=== PATIENT | male | born 1985 | race Caucasian/White ===

== ENCOUNTER 2020-04-29 19:26 | Emergency (ER) | payer SELFPAY ==
[2020-04-29] MEDS ORDERED: HYDROCODONE/APAP 5/325 MG TAB ONE ×2 (19:59→20:56)
[2020-04-29] MEDS ORDERED: ONDANSETRON 4 MG (ODT) TAB ONE (20:00)
[2020-04-29] MEDS ORDERED: KETOROLAC 30 MG/ML INJ ONE (20:56)
[2020-04-29] MEDS ORDERED: NA CHLORIDE 0.9% 1,000 ML ONE (22:31)
[2020-04-29] MEDS ORDERED: FENTANYL CITR 100 MCG/2 ML ONE (22:31)
[2020-04-29] MEDS ORDERED: HYDROMORPHONE HCL 1 MG/ML INJ ONE (23:14)
[2020-04-29 23:22] LABS: Absolute Lymphocytes (CBC) 1.2 K/uL (0.7-4.9); Basophils % 0.6 % (0-1.3); Hematocrit 31.4 % (39.6-49.0); Lymphocytes % 32.7 % (15.3-44.8); MPV 8.2 fL (7.6-11.3); RBC Red Blood Cell Count 4.65 M/uL (4.33-5.43)
[2020-04-29 23:34] LABS: ALT/SGPT 21 U/L (12-78); AST/SGOT 13 U/L (15-37); Albumin 4.6 g/dL (3.4-5.0); Alkaline Phosphatase 52 U/L (45-117); BUN Blood Urea Nitrogen 10 mg/dL (7-18); Bicarbonate 28 mmol/L (21-32); Bilirubin Direct 0.1 mg/dL (0-0.2); Bilirubin Total 0.4 mg/dL (0.2-1.0); Glucose Level 84 mg/dL (74-106); Lipase 183 U/L (73-393); Potassium 4.3 mmol/L (3.5-5.1); Protein, Total 7.9 g/dL (6.4-8.2); Sodium Level 139 mmol/L (136-145)
[2020-04-30] MEDS ORDERED: HYDROMORPHONE HCL 1 MG/ML INJ ONE (01:00)
[2020-04-30 01:07] LABS: Urine Blood 3+ (NEG); Urine Glucose NEGATIVE (NEG); Urine Protein NEGATIVE (NEG); Urine Specific Gravity <1.005 (1.005-1.030)
[2020-04-30 01:23] LABS: Blood Morphology Comment NOTED (NOT SEEN); Hypochromasia 1+; Platelet Estimate ADEQ; White Blood Cell Scan OK (OK)
--- NOTE | 2020-04-30 01:39 | ER ---
Nurse's Notes [facility] [place] Name: Luis Forman Age: 34 yrs Sex: Male : 1985 Arrival Date: 04/29/2020 Time: 19:29 Bed 23 Private MD: Diagnosis: Unspecified renal colic;Hematuria, unspecified Presentation: 04/29 19:34 Chief complaint: Patient states: L flank pain started last night. Now pain L groin area ca1 radiating to the R testicular area. HX of kidney stones. Coronavirus screen: Client denies travel out of the [place] in the last 14 days. At this time, the client does not indicate any symptoms associated with coronavirus-19. Ebola Screen: Patient negative for fever greater than or equal to 101.5 degrees Fahrenheit, and additional compatible Ebola Virus Disease symptoms Patient denies exposure to infectious person. Patient denies travel to an Ebola-affected area in the 21 days before illness onset. No symptoms or risks identified at this time. Initial Sepsis Screen: Does the patient meet any 2 criteria? No. Patient's initial sepsis screen is negative. Does the patient have a suspected source of infection? No. Patient's initial sepsis screen is negative. Risk Assessment: Do you want to hurt yourself or someone else? Patient reports no desire to harm self or others. Onset of symptoms was April 29, 2020. 19:34 Method Of Arrival: Ambulatory ca1 19:34 Acuity: FLORINDA 2 ca1 Triage Assessment: 19:38 General: Appears uncomfortable, Behavior is calm, cooperative. Pain: Complains of pain ca1 in groin and left inguinal area Pain currently is 10 out of 10 on a pain scale. Pain began 4 hours ago. Is continuous, Noted to be grimacing, guarding, moaning, restless. Historical: - Allergies: 19:37 No Known Allergies; ca1 - Home Meds: 19:37 Remicade 100 mg intravenous solr every 6 wks [Active]; ca1 - PMHx: 19:37 Kidney stones; Crohn's; ca1 - PSHx: 19:37 Cholecystectomy; ca1 - Immunization history:: Flu vaccine is up to date. - Social history:: Smoking status: Patient denies any tobacco usage or history of. Screenin/16 00:24 Abuse screen: Denies threats or abuse. Denies injuries from another. Nutritional zb screening: No deficits noted. Tuberculosis screening: No symptoms or risk factors identified. Fall Risk None identified. Assessment: 04/29 22:20 General: Appears uncomfortable, Behavior is anxious. Pain: Complains of pain in pelvis zb and left inguinal area and groin Pain does not radiate. Pain radiates to left inguinal area Pain currently is 10 out of 10 on a pain scale. Quality of pain is described as throbbing. Neuro: Level of Consciousness is awake, alert, obeys commands, Oriented to person, place, time, situation, Calender Tender are equal bilaterally. Cardiovascular: Capillary refill < 3 seconds Patient's skin is warm and dry. Respiratory: Airway is patent Respiratory effort is even, unlabored, Respiratory pattern is regular, symmetrical. GI: No signs and/or symptoms were reported involving the gastrointestinal system. : Reports pain in left flank(s). EENT: No signs and/or symptoms were reported regarding the EENT system. Derm: Skin is normal. Musculoskeletal: Range of motion: intact in all extremities. 23:00 Reassessment: Patient appears in no apparent distress at this time. Patient and/or zb family updated on plan of care and expected duration. Pain level reassessed. patient continues to rock back and forth, appears to be in pain. rates pain 10/10. notified ECP. medication given. 04/30 00:00 Reassessment: Patient appears in no apparent distress at this time. Patient and/or zb family updated on plan of care and expected duration. Pain level reassessed. Patient continues to be in pain. notified ECP. medication given. patient taken to CT scan. 00:45 Reassessment: ecp at bedside discussing care with patient. patient states he continues zb to be in pain. pain 10/10, continues to rock back and forth. 01:34 Reassessment: Patient appears in no apparent distress at this time. pt resting quietly sg on stretcher at this time, awaiting new orders, awaiting dispo orders. 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 Vital Signs: 04/29 19:34 BP 155 / 94; Pulse 100; Resp 16 S; Temp 98.2(TE); Pulse Ox 99% on R/A; Weight 72.57 kg ca1 (R); Height 6 ft. 1 in. (185.42 cm) (R); Pain 10/10; 23:00 BP 157 / 119; Pulse 85; Resp 18; Pulse Ox 99% on R/A; zb 04/30 00:25 BP 158 / 113; Pulse 89; Resp 16; Pulse Ox 97% on R/A; zb 01:50 BP 152 / 77; Pulse 82; Resp 16; Pulse Ox 98% on R/A; sg 03 19:34 Body Mass Index 21.11 (72.57 kg, 185.42 cm) ca1 ED Course: 04/29 19:29 Patient arrived in ED. am4 19:36 Triage completed. ca1 19:37 Arm band placed on right wrist. ca1 19:40 Pedro Pablo Beltrán MD is Attending Physician. tw4 22:11 Maite Painting RN is Primary Nurse. zb 23:00 Inserted saline lock: 22 gauge in left upper arm, using aseptic technique. Blood zb collected. 04/30 00:24 Patient has correct armband on for positive identification. Bed in low position. Call zb light in reach. Side rails up X 1. Pulse ox on. NIBP on. Door closed. Noise minimized. 00:50 CT Stone Protocol In Process Unspecified. EDMS 01:10 Primary Nurse role handed off by Maite Painting RN sg 01:10 Chaitanya Blanchard RN is Primary Nurse. sg 01:41 Dexter Guthrie MD is Referral Physician. tw4 01:41 Michel Gee MD is Referral Physician. tw4 01:48 No provider procedures requiring assistance completed. sg Administered Medications: 04/29 12:12 Drug: fentaNYL (PF) 25 mcg {Note: rass +1.} Route: IVP; Site: left upper arm; zb 04/30 00:22 Follow up: Response: No adverse reaction; Pain is unchanged, physician notified zb 04/29 19:43 Drug: Zofran (Ondansetron) 4 mg Route: PO; ca1 04/30 00:20 Follow up: Response: No adverse reaction zb 04/29 19:44 Drug: [place] 5 mg-325 mg 1 tabs {Note: rass 1.} Route: PO; ca1 21:20 Follow up: Response: No adverse reaction; Pain is unchanged, physician notified zb 20:42 Drug: TORadol 60 mg Route: IM; Site: right gluteus; ca1 04/30 00:20 Follow up: Response: No adverse reaction; Pain is unchanged, physician notified zb 04/29 20:42 Drug: [place] 5 mg-325 mg 1 tabs {Note: rass 1.} Route: PO; ca1 21:00 Follow up: Response: No adverse reaction; Pain is unchanged, physician notified zb 22:11 Drug: fentaNYL (PF) 50 mcg {Note: rass +1.} Route: IVP; Site: left upper arm; zb 22:30 Follow up: Response: No adverse reaction; Pain is unchanged, physician notified zb 23:05 Drug: NS 0.9% 1000 ml Route: IV; Rate: 1 bolus; Site: left upper arm; zb 23:05 Drug: Dilaudid 1 mg Route: IVP; Site: left upper arm; zb 04/30 00:22 Follow up: Response: No adverse reaction; RASS: Restless (+1) zb 00:48 Drug: Dilaudid 1 mg {Note: rass +1.} Route: IVP; Site: left upper arm; zb 01:38 Not Given (Physician Discretion): Valium 1 mg IVP once tw4 01:41 Drug: morphine 2 mg Route: IVP; Site: left upper arm; sg 02:01 Follow up: Response: Adverse reaction, Physician notified; Pain is decreased sg 01:41 Drug: Zofran (Ondansetron) 4 mg Route: IVP; Site: left upper arm; sg 02:01 Follow up: Response: Adverse reaction, Physician notified sg 02:00 Drug: Benadryl 50 mg Route: IVP; Site: left upper arm; sg 02:16 Follow up: Response: No adverse reaction; Marked relief of symptoms sg Intake: 04/29 19:00 IV: 1000ml; Total: 1000ml. zb Outcome: 04/30 01:39 Discharge ordered by . tw4 01:50 Patient left the ED. sg 02:16 Patient left the ED. sg Signatures: Dispatcher [employer] Chaitanya Rios RN RN sg Pedro Pablo Beltrán MD MD tw4 Corazon Lovelace RN RN ca1 Maite Painting RN RN zb Zen[place] Man am4 Corrections: (The following items were deleted from the chart) 04/29 19:37 19:34 Acuity: FLORINDA 3 ca1 ca1 19:56 19:34 BP 155 / 94; Pulse 100bpm; Resp 16bpm; Spontaneous; Temp 98.2F Temporal; 72.57 kg ca1 Reported; Height 6 ft. 1 in. Reported; BMI: 21.1; Pain 11/24; ca1 04/30 00:19 04/29 12:12 fentaNYL (PF) 25 mcg IVP in left upper arm zb zb 04/30 00:22 04/29 22:11 fentaNYL (PF) 50 mcg IVP in left upper arm zb zb 04/30 00:49 00:48 Dilaudid 1 mg IVP in left upper arm zb zb
--- NOTE | 2020-04-30 01:40 | EDPHYS ---
Physician Documentation [facility] Name: Luis Forman Age: 34 yrs Sex: Male : 1985 Arrival Date: 04/29/2020 Time: 19:29 Bed 23 Private MD: ED Physician Pedro Pablo Beltrán HPI: 04/30 01:01 This 34 yrs old Male presents to ER via Ambulatory with complaints of Flank tw4 Pain. 01:01 The patient complains of pain in the left mid back. The pain radiates to the left lower tw4 quadrant. Onset: The symptoms/episode began/occurred today. Modifying factors: The symptoms are alleviated by nothing. the symptoms are aggravated by nothing. Severity of pain: At its worst the pain was moderate in the emergency department the pain is unchanged. The patient has not experienced similar symptoms in the past. Historical: - Allergies: 04/29 19:37 No Known Allergies; ca1 - Home Meds: 19:37 Remicade 100 mg intravenous solr every 6 wks [Active]; ca1 - PMHx: 19:37 Kidney stones; Crohn's; ca1 - PSHx: 19:37 Cholecystectomy; ca1 - Immunization history:: Flu vaccine is up to date. - Social history:: Smoking status: Patient denies any tobacco usage or history of. ROS: 04/30 01:01 Constitutional: Negative for fever, chills, and weight loss, Eyes: Negative for injury, tw4 pain, redness, and discharge, Cardiovascular: Negative for chest pain, palpitations, and edema, Respiratory: Negative for shortness of breath, cough, wheezing, and pleuritic chest pain, Abdomen/GI: Negative for abdominal pain, nausea, vomiting, diarrhea, and constipation, MS/Extremity: Negative for injury and deformity, Skin: Negative for injury, rash, and discoloration, Neuro: Negative for headache, weakness, numbness, tingling, and seizure. Back: Positive for flank pain, on the left. Exam: 01:01 Constitutional: This is a well developed, well nourished patient who is awake, alert, tw4 and in no acute distress. Head/Face: Normocephalic, atraumatic. Chest/axilla: Normal chest wall appearance and motion. Nontender with no deformity. No lesions are appreciated. Cardiovascular: Regular rate and rhythm with a normal S1 and S2. No gallops, murmurs, or rubs. Normal PMI, no JVD. No pulse deficits. Respiratory: Lungs have equal breath sounds bilaterally, clear to auscultation and percussion. No rales, rhonchi or wheezes noted. No increased work of breathing, no retractions or nasal flaring. Abdomen/GI: Soft, non-tender, with normal bowel sounds. No distension or tympany. No guarding or rebound. No evidence of tenderness throughout. 01:01 MS/ Extremity: Pulses equal, no cyanosis. Neurovascular intact. Full, normal range of motion. Neuro: Awake and alert, GCS 15, oriented to person, place, time, and situation. Cranial nerves II-XII grossly intact. Motor strength 5/5 in all extremities. Sensory grossly intact. Cerebellar exam normal. Normal gait. 01:01 Back: pain, is absent, ROM is normal, CVA tenderness, is noted on the left. Vital Signs: 04/29 19:34 BP 155 / 94; Pulse 100; Resp 16 S; Temp 98.2(TE); Pulse Ox 99% on R/A; Weight 72.57 kg ca1 (R); Height 6 ft. 1 in. (185.42 cm) (R); Pain 10/10; 23:00 BP 157 / 119; Pulse 85; Resp 18; Pulse Ox 99% on R/A; zb 04/30 00:25 BP 158 / 113; Pulse 89; Resp 16; Pulse Ox 97% on R/A; zb 01:50 BP 152 / 77; Pulse 82; Resp 16; Pulse Ox 98% on R/A; sg 04/29 19:34 Body Mass Index 21.11 (72.57 kg, 185.42 cm) ca1 MDM: 04/29 22:51 Patient medically screened. tw4 04/30 06:18 Differential diagnosis: nephrolithiasis, pyelonephritis. Data reviewed: vital signs, tw4 nurses notes. Data interpreted: Pulse oximetry: Interpretation: normal. Counseling: I had a detailed discussion with the patient and/or guardian regarding: the historical points, exam findings, and any diagnostic results supporting the discharge/admit diagnosis. Medical screen evaluation completed. EMTALA emergency medical condition absent. Medication response: Toradol did not change the patient's pain. Response to treatment: the patient's symptoms have markedly improved after treatment, and as a result, I will discharge patient. Special discussion: I discussed with the patient/guardian in detail that at this point there is no indication for admission to the hospital. It is understood, however, that if the symptoms persist or worsen the patient needs to return immediately for re-evaluation. 04/29 19:41 Order name: Basic Metabolic Panel; Complete Time: 01:35 [facility] 04/30 01:35 Interpretation: Within normal limits. [facility] 04/29 19:41 Order name: CBC with Diff; Complete Time: 01:34 tw 04/30 01:34 Interpretation: Normal except: WBC 3.70; HGB 9.3; HCT 31.4; MCV 67.4; MCH 20.0; MCHC tw4 29.6; RDW 18.5. 04/29 19:41 Order name: Hepatic Function; Complete Time: 01:34 [facility] 04/30 01:34 Interpretation: Normal except: AST 13. [facility] 04/29 19:41 Order name: Lipase; Complete Time: 01:35 [facility] 04/30 01:35 Interpretation: Within normal limits: LIP 183. [facility] 04/29 23:32 Order name: Urine Microscopic Only [facility] 04/29 23:39 Order name: Urine Dipstick--Ancillary (enter results); Complete Time: 01:34 3 04/30 01:35 Interpretation: Normal except: UBLD 3+. [facility] 04/29 19:41 Order name: CT Stone Protocol [facility] 04/29 23:47 Order name: CBC Smear Scan; Complete Time: 01:35 EDMS 04/30 01:35 Interpretation: Within normal limits. [facility] 04/29 19:41 Order name: IV Saline Lock; Complete Time: 23:05 [facility] 04/29 19:41 Order name: Labs collected and sent; Complete Time: 23:05 [facility] 04/29 19:41 Order name: Urine Dipstick-Ancillary (obtain specimen); Complete Time: 00:30 tw Administered Medications: 04/29 12:12 Drug: fentaNYL (PF) 25 mcg {Note: rass +1.} Route: IVP; Site: left upper arm; 04/30 00:22 Follow up: Response: No adverse reaction; Pain is unchanged, physician notified 04/29 19:43 Drug: Zofran (Ondansetron) 4 mg Route: PO; ca1 04/30 00:20 Follow up: Response: No adverse reaction zb 04/29 19:44 Drug: [place] 5 mg-325 mg 1 tabs {Note: rass 1.} Route: PO; ca1 21:20 Follow up: Response: No adverse reaction; Pain is unchanged, physician notified zb 20:42 Drug: TORadol 60 mg Route: IM; Site: right gluteus; ca1 04/30 00:20 Follow up: Response: No adverse reaction; Pain is unchanged, physician notified zb 04/29 20:42 Drug: [place] 5 mg-325 mg 1 tabs {Note: rass 1.} Route: PO; ca1 21:00 Follow up: Response: No adverse reaction; Pain is unchanged, physician notified zb 22:11 Drug: fentaNYL (PF) 50 mcg {Note: rass +1.} Route: IVP; Site: left upper arm; zb 22:30 Follow up: Response: No adverse reaction; Pain is unchanged, physician notified zb 23:05 Drug: NS 0.9% 1000 ml Route: IV; Rate: 1 bolus; Site: left upper arm; zb 23:05 Drug: Dilaudid 1 mg Route: IVP; Site: left upper arm; zb 04/30 00:22 Follow up: Response: No adverse reaction; RASS: Restless (+1) zb 00:48 Drug: Dilaudid 1 mg {Note: rass +1.} Route: IVP; Site: left upper arm; zb 01:38 Not Given (Physician Discretion): Valium 1 mg IVP once tw4 01:41 Drug: morphine 2 mg Route: IVP; Site: left upper arm; sg 02:01 Follow up: Response: Adverse reaction, Physician notified; Pain is decreased sg 01:41 Drug: Zofran (Ondansetron) 4 mg Route: IVP; Site: left upper arm; sg 02:01 Follow up: Response: Adverse reaction, Physician notified sg 02:00 Drug: Benadryl 50 mg Route: IVP; Site: left upper arm; sg 02:16 Follow up: Response: No adverse reaction; Marked relief of symptoms sg Disposition: 04/30/20 01:39 Discharged to Home. Impression: Unspecified renal colic, Hematuria, unspecified. - Condition is Stable. - Discharge Instructions: Hematuria, Adult, Kidney Stones, Renal Colic. - Prescriptions for ketorolac 10 mg Oral tablet - take 1 tablet by ORAL route every 4 hours not to exceed 40 mg in 24hrs; 14 tablet. Tramadol 50 mg Oral Tablet - take 1 tablet by ORAL route every 8 hours as needed; 12 tablet. - Medication Reconciliation Form, Thank You Letter, Antibiotic Education, Prescription Opioid Use form. - Follow up: Private Physician; When: Upon discharge from the Emergency Department; Reason: Recheck today's complaints, Continuance of care, Re-evaluation by your physician. Follow up: Dexter Guthrie MD; When: Upon discharge from the Emergency Department; Reason: Recheck today's complaints, Continuance of care, Re-evaluation by your physician. Follow up: Michel Gee MD; When: Upon discharge from the Emergency Department; Reason: Recheck today's complaints, Continuance of care, Re-evaluation by your physician. - Problem is new. - Symptoms have improved. Signatures: Dispatcher [employer] EDMS Chaitanya Blanchard RN RN sg Pedro Pablo Beltrán MD MD tw4 Corazon Lovelace RN RN ca1 Brown, Zipporah, RN RN zb Corrections: (The following items were deleted from the chart) 01:41 01:39 04/30/2020 01:39 Discharged to Home. Impression: Unspecified renal colic; tw4 Hematuria, unspecified. Condition is Stable. Forms are Medication Reconciliation Form, Thank You Letter, Antibiotic Education, Prescription Opioid Use. Follow up: Private Physician; When: Upon discharge from the Emergency Department; Reason: Recheck today's complaints, Continuance of care, Re-evaluation by your physician. Problem is new. Symptoms have improved. tw4 01:50 01:41 04/30/2020 01:39 Discharged to Home. Impression: Unspecified renal colic; sg Hematuria, unspecified. Condition is Stable. Discharge Instructions: Hematuria, Adult, Kidney Stones, Renal Colic. Prescriptions for ketorolac 10 mg Oral tablet - take 1 tablet by ORAL route every 4 hours not to exceed 40 mg in 24hrs; 14 tablet, Tramadol 50 mg Oral Tablet - take 1 tablet by ORAL route every 8 hours as needed; 12 tablet. and Forms are Medication Reconciliation Form, Thank You Letter, Antibiotic Education, Prescription Opioid Use. Follow up: Private Physician; When: Upon discharge from the Emergency Department; Reason: Recheck today's complaints, Continuance of care, Re-evaluation by your physician. Follow up: Dexter Guthrie; When: Upon discharge from the Emergency Department; Reason: Recheck today's complaints, Continuance of care, Re-evaluation by your physician. Follow up: Michel Gee; When: Upon discharge from the Emergency Department; Reason: Recheck today's complaints, Continuance of care, Re-evaluation by your physician. Problem is new. Symptoms have improved. tw4 02:16 01:50 04/30/2020 01:39 Discharged to Home. Impression: Unspecified renal colic; sg Hematuria, unspecified. Condition is Stable. Discharge Instructions: Hematuria, Adult, Kidney Stones, Renal Colic. Prescriptions for ketorolac 10 mg Oral tablet - take 1 tablet by ORAL route every 4 hours not to exceed 40 mg in 24hrs; 14 tablet, Tramadol 50 mg Oral Tablet - take 1 tablet by ORAL route every 8 hours as needed; 12 tablet. and Forms are Medication Reconciliation Form, Thank You Letter, Antibiotic Education, Prescription Opioid Use. Follow up: Private Physician; When: Upon discharge from the Emergency Department; Reason: Recheck today's complaints, Continuance of care, Re-evaluation by your physician. Follow up: Dexter Guthrie; When: Upon discharge from the Emergency Department; Reason: Recheck today's complaints, Continuance of care, Re-evaluation by your physician. Follow up: Michel Gee; When: Upon discharge from the Emergency Department; Reason: Recheck today's complaints, Continuance of care, Re-evaluation by your physician. Problem is new. Symptoms have improved. sg
[2020-04-30 01:58] LABS: Urine Bacteria <20 /HPF (NONE SEEN); Urine RBC 20-50 /HPF (NONE SEEN)
[2020-04-30] MEDS ORDERED: ONDANSETRON 4 MG/2 ML VIAL ONE (02:00)
[2020-04-30] MEDS ORDERED: MORPHINE 4 MG/ML SYR ONE (02:00)
[2020-04-30] MEDS ORDERED: FAMOTIDINE 20 MG/2 ML VIAL IV ONE (02:13)
[2020-04-30] MEDS ORDERED: METHYLPREDNISOLONE 125 MG INJ ONE (02:13)
[2020-04-30] MEDS ORDERED: DIPHENHYDRAMINE 50 MG/ML VIAL ONE (02:13)
[2020-04-30 04:34] VITALS: TEMP 98.2
[2020-04-30 05:52] VITALS: BP 152/77; O2SAT 98
--- NOTE | 2020-04-30 10:50 | RAD REPORT ---
EXAM DESCRIPTION: CT - Stone Protocol - 04/30/2020 6:21 am CLINICAL HISTORY: 34 years, Male, FLANK PAIN COMPARISON: None. TECHNIQUE: Multiple transaxial tomograms of the abdomen and pelvis were performed from the lung base s to the symphysis pubis 3 mm slice thickness at 3 mm interval reconstruction, without administration of IV and oral contrast. Multiplanar reformats in the sagittal and coronal plane were generated and reviewed. An individualized dose optimization technique, Automated Exposure Control, was utilized for the perfo rmed procedure. FINDINGS: The lack of IV and oral contrast limits evaluation of solid organs, subtle lesions cannot be excluded. Motion artifact limits the evaluation. The lung bases demonstrate to be grossly clear. Grossly the unopacified liver, pancreas, spleen and adrenal glands demonstrate to be within normal li mits, no significant focal lesions were identified. There is status post cholecystectomy. The kidneys demonstrate grossly unremarkable, no gross nephrolithiasis and/or hydronephrosis were maximus ntified. Grossly the unopacified stomach, small bowel and large bowel demonstrate to be within normal limits. There is no definitive bowel dilatation. The urinary bladder demonstrate to be within normal limits. The prostate gland demonstrate to be riky sly within normal limits. The aorta demonstrate to be within normal limits. There is no retroperito arianna lymphadenopathy. There is no evidence for significant evidence for ascites. The rest of the so ft tissue demonstrate to be grossly unremarkable. IMPRESSION: COMPROMISE STUDY DUE TO MOTION ARTIFACT. NO SIGNIFICANT HYDRONEPHROSIS AND/OR NEPHROLITH IASIS. Electronically signed by: Raudel Rothman MD 04/30/2020 12:58 AM CDT Due to temporary technical issues with the PACS/Fluency reporting system, reports are being signed by the in house radiologist without review as a courtesy to ensure prompt reporting. The interpreting r adiologist is fully responsible for the content of the report.
== END 2020-04-30 02:16 | disposition home or self-care (01) ==
LOC: ER 19:26
DX: N23 Unspecified renal colic (principal); R31.9 Hematuria, unspecified; Z87.442 Personal history of urinary calculi
CPT/HCPCS: 36415; 74176; 76377; 80048; 80076; 81003; 81015; 83690; 85025; 96372; 96374; 96375; 99284; J1170; J1200; J2405; J2930; J3010; J7030

== ENCOUNTER 2020-05-01 00:41 | Emergency (ER) | payer SELFPAY ==
[2020-05-01] MEDS ORDERED: FENTANYL CITR 100 MCG/2 ML ONE (02:26)
[2020-05-01] MEDS ORDERED: ONDANSETRON 4 MG/2 ML VIAL ONE (02:26)
[2020-05-01] MEDS ORDERED: KETOROLAC 30 MG/ML INJ ONE (02:26)
[2020-05-01] MEDS ORDERED: NA CHLORIDE 0.9% 1,000 ML ONE ×2 (02:26→04:13)
[2020-05-01 02:33] LABS: Absolute Lymphocytes (CBC) 1.5 K/uL (0.7-4.9); Basophils % 0.6 % (0-1.3); Hematocrit 29.6 % (39.6-49.0); Lymphocytes % 47.2 % (15.3-44.8); MPV 8.2 fL (7.6-11.3); RBC Red Blood Cell Count 4.44 M/uL (4.33-5.43)
[2020-05-01 03:00] LABS: ALT/SGPT 19 U/L (12-78); AST/SGOT 8 U/L (15-37); Albumin 4.3 g/dL (3.4-5.0); Alkaline Phosphatase 50 U/L (45-117); BUN Blood Urea Nitrogen 14 mg/dL (7-18); Bicarbonate 28 mmol/L (21-32); Bilirubin Direct < 0.1 mg/dL (0-0.2); Bilirubin Total 0.2 mg/dL (0.2-1.0); Glucose Level 99 mg/dL (74-106); Lipase 116 U/L (73-393); Potassium 4.1 mmol/L (3.5-5.1); Protein, Total 7.5 g/dL (6.4-8.2); Sodium Level 141 mmol/L (136-145)
[2020-05-01] MEDS ORDERED: HYDROMORPHONE HCL 1 MG/ML INJ ONE ×3 (03:05→06:09)
[2020-05-01 03:46] LABS: Blood Morphology Comment NOTED (NOT SEEN); Hypochromasia 2+; Platelet Estimate ADEQ; White Blood Cell Scan OK (OK)
[2020-05-01] MEDS ORDERED: FAMOTIDINE 20 MG/2 ML VIAL IV ONE (04:30)
[2020-05-01] MEDS ORDERED: DIPHENHYDRAMINE 50 MG/ML VIAL ONE (04:30)
[2020-05-01] MEDS ORDERED: METHYLPREDNISOLONE 125 MG INJ ONE (04:30)
--- NOTE | 2020-05-01 05:36 | EDPHYS ---
Physician Documentation [facility] Name: Luis Forman Age: 34 yrs Sex: Male : 1985 Arrival Date: 05/01/2020 Time: 00:44 Bed 3 Private MD: ED Physician Minor Camejo HPI: 05/01 01:42 This 34 yrs old Male presents to ER via Unassigned with complaints of Flank harlan Pain. 01:42 The patient complains of pain in the left low back and left mid back. The pain radiates harlan to the left low back and left mid back. Onset: The symptoms/episode began/occurred 2 day(s) ago. Modifying factors: The symptoms are alleviated by nothing. the symptoms are aggravated by nothing. Associated signs and symptoms: The patient has no apparent associated signs or symptoms. Severity of pain: At its worst the pain was mild in the emergency department the pain is unchanged. The patient has not experienced similar symptoms in the past. Historical: - Allergies: 00:46 Morphine; sg - PMHx: 00:46 Crohn's; Kidney stones; sg - PSHx: 00:46 Cholecystectomy; sg - Immunization history:: Adult Immunizations unknown. - Family history:: not pertinent. - Social history:: Smoking status: unknown. ROS: 01:42 Constitutional: Negative for fever, chills, and weight loss, Eyes: Negative for injury, harlan pain, redness, and discharge, ENT: Negative for injury, pain, and discharge, Neck: Negative for injury, pain, and swelling, Cardiovascular: Negative for chest pain, palpitations, and edema, Respiratory: Negative for shortness of breath, cough, wheezing, and pleuritic chest pain, Abdomen/GI: Negative for abdominal pain, nausea, vomiting, diarrhea, and constipation, : Negative for injury, bleeding, discharge, and swelling, MS/Extremity: Negative for injury and deformity, Skin: Negative for injury, rash, and discoloration, Neuro: Negative for headache, weakness, numbness, tingling, and seizure. 01:42 Back: Positive for pain at rest, flank pain, on the left, radiated pain. Exam: 01:42 Constitutional: This is a well developed, well nourished patient who is awake, alert, harlan and in no acute distress. Head/Face: Normocephalic, atraumatic. Eyes: Pupils equal round and reactive to light, extra-ocular motions intact. Lids and lashes normal. Conjunctiva and sclera are non-icteric and not injected. Cornea within normal limits. Periorbital areas with no swelling, redness, or edema. ENT: Nares patent. No nasal discharge, no septal abnormalities noted. Tympanic membranes are normal and external auditory canals are clear. Oropharynx with no redness, swelling, or masses, exudates, or evidence of obstruction, uvula midline. Mucous membranes moist. Neck: Trachea midline, no thyromegaly or masses palpated, and no cervical lymphadenopathy. Supple, full range of motion without nuchal rigidity, or vertebral point tenderness. No Meningismus. Chest/axilla: Normal chest wall appearance and motion. Nontender with no deformity. No lesions are appreciated. Cardiovascular: Regular rate and rhythm with a normal S1 and S2. No gallops, murmurs, or rubs. Normal PMI, no JVD. No pulse deficits. Respiratory: Lungs have equal breath sounds bilaterally, clear to auscultation and percussion. No rales, rhonchi or wheezes noted. No increased work of breathing, no retractions or nasal flaring. Abdomen/GI: Soft, non-tender, with normal bowel sounds. No distension or tympany. No guarding or rebound. No evidence of tenderness throughout. Back: No spinal tenderness. No costovertebral tenderness. Full range of motion. Male : Normal genitalia with no discharge or lesions. Skin: Warm, dry with normal turgor. Normal color with no rashes, no lesions, and no evidence of cellulitis. MS/ Extremity: Pulses equal, no cyanosis. Neurovascular intact. Full, normal range of motion. Neuro: Awake and alert, GCS 15, oriented to person, place, time, and situation. Cranial nerves II-XII grossly intact. Motor strength 5/5 in all extremities. Sensory grossly intact. Cerebellar exam normal. Normal gait. Psych: Awake, alert, with orientation to person, place and time. Behavior, mood, and affect are within normal limits. Vital Signs: 00:46 BP 162 / 100; Pulse 88; Resp 18; Pulse Ox 100% on R/A; sg 02:54 BP 152 / 105; Pulse 76; Resp 18; Pulse Ox 99% on R/A; ea 05:50 BP 148 / 98; Pulse 72; Resp 16; Pulse Ox 99% on R/A; Pain 9/10; em MDM: 01:35 Patient medically screened. [facility] 01:47 Differential diagnosis: nephrolithiasis, pyelonephritis, UTI, testicular torsion. Data [facility] reviewed: vital signs, nurses notes, lab test result(s), radiologic studies, CT scan. Data interpreted: environmental studies program director: rate is 88 beats/min, rhythm is regular, Pulse oximetry: on room air is 10 %. Test interpretation: by ED physician or midlevel provider:. Counseling: I had a detailed discussion with the patient and/or guardian regarding: the historical points, exam findings, and any diagnostic results supporting the discharge/admit diagnosis, lab results, radiology results, the need for outpatient follow up. 05/01 01:34 Order name: Basic Metabolic Panel; Complete Time: 03:49 [facility] 05/01 01:34 Order name: CBC with Diff; Complete Time: 03:49 [facility] 05/01 01:34 Order name: Hepatic Function; Complete Time: 03:49 [facility] 05/01 01:34 Order name: Lipase; Complete Time: 03:49 [facility] 05/01 02:41 Order name: CBC Smear Scan; Complete Time: 03:49 [facility] 05/01 05:51 Order name: Urine Dipstick--Ancillary (enter results) tt3 05/01 03:49 Order name: CT Abd/Pelvis - IV Contrast Only [facility] 05/01 01:34 Order name: IV Saline Lock; Complete Time: 02:24 [facility] 05/01 01:34 Order name: Labs collected and sent; Complete Time: 02:24 [facility] 05/01 01:34 Order name: Urine Dipstick-Ancillary (obtain specimen); Complete Time: 05:48 [facility] Administered Medications: 02:22 Drug: Zofran (Ondansetron) 4 mg Route: IVP; Site: right upper arm; ea 02:23 Follow up: Response: No adverse reaction ea 02:22 Drug: TORadol 30 mg Route: IVP; Site: right upper arm; ea 02:53 Follow up: Response: No adverse reaction ea 02:23 Drug: NS 0.9% 1000 ml Route: IV; Rate: 1 bolus; Site: right upper arm; ea 02:23 Drug: fentaNYL (PF) 50 mcg Route: IVP; Site: right upper arm; ea 02:53 Follow up: Response: No adverse reaction ea 02:51 Drug: Dilaudid 1 mg Route: IVP; Site: right upper arm; ea 03:30 Follow up: Response: No adverse reaction ea 04:02 Drug: Dilaudid 1 mg Route: IVP; Site: right upper arm; ea 05:00 Follow up: Response: No adverse reaction ea 05:00 Follow up: Response: No adverse reaction ea 04:03 Drug: NS 0.9% 1000 ml Route: IV; Rate: 1 bolus; Site: right upper arm; ea 06:06 Follow up: IV Status: Completed infusion; IV Intake: 1000ml em 04:18 Drug: SOLU-Medrol 125 mg Route: IVP; Site: right upper arm; ea 06:08 Follow up: Response: No adverse reaction em 04:19 Drug: Benadryl 50 mg Route: IVP; Site: right upper arm; ea 05:00 Follow up: Response: No adverse reaction ea 04:19 Drug: Pepcid 40 mg Route: IVP; Site: right upper arm; ea 06:09 Follow up: Response: No adverse reaction em 05:52 Drug: Rocephin - (cefTRIAXone) 1 grams Route: IVPB; Infused Over: 30 mins; Site: right em upper arm; 06:08 Follow up: Response: No adverse reaction; IV Status: Completed infusion; IV Intake: 10mlem 05:58 Drug: Dilaudid 1 mg Route: IVP; Site: right upper arm; em 06:08 Follow up: Response: Medication administered at discharge. em Disposition: 05/01/20 05:35 Discharged to Home. Impression: Urinary tract infection, site not specified, Abdominal tenderness, Cystitis, unspecified, Cystitis, unspecified with hematuria. - Condition is Stable. - Discharge Instructions: Abdominal Pain, Adult, Dysuria, Urinary Tract Infection, Adult, Urinary Tract Infection, Adult, [id number], Abdominal Pain, Adult, [id number]. - Prescriptions for Bentyl 20 mg Oral Tablet - take 1 tablet by ORAL route every 6 hours As needed; 20 tablet. Tylenol- Codeine #3 300-30 mg Oral Tablet - take 2 tablets by ORAL route every 4-6 hours As needed; 24 tablet. Flomax 0.4 mg Oral Capsule, Sust. Release 24 hr - take 1 capsule by ORAL route once daily 1/2 hour following the same meal each day; 14 capsule. Cipro 500 mg Oral Tablet - take 1 tablet by ORAL route every 12 hours for 7 days; 14 tablet. - Medication Reconciliation Form, Thank You Letter, Antibiotic Education, Prescription Opioid Use form. - Follow up: Private Physician; When: 2 - 3 days; Reason: Recheck today's complaints, Continuance of care, Re-evaluation by your physician. Follow up: Michel Gee MD; When: 2 - 3 days; Reason: Recheck today's complaints, Continuance of care, Re-evaluation by your physician. - Problem is new. - Symptoms have improved. Signatures: Dispatcher [employer] EDChaitanya Osborne RN RN sg Anderson, Corey, MD MD cha Munoz, Edgar RN Ursula Rahman RN RN ea Corrections: (The following items were deleted from the chart) 05:35 05:35 05/01/2020 05:35 Discharged to Home. Impression: Urinary tract infection, site harlan not specified; Abdominal tenderness. Condition is Stable. Forms are Medication Reconciliation Form, Thank You Letter, Antibiotic Education, Prescription Opioid Use. Follow up: Private Physician; When: 2 - 3 days; Reason: Recheck today's complaints, Continuance of care, Re-evaluation by your physician. Follow up: Michel Gee; When: 2 - 3 days; Reason: Recheck today's complaints, Continuance of care, Re-evaluation by your physician. Problem is new. Symptoms have improved. [facility] 06:12 05:35 05/01/2020 05:35 Discharged to Home. Impression: Urinary tract infection, site em not specified; Abdominal tenderness; Cystitis, unspecified; Cystitis, unspecified with hematuria. Condition is Stable. Forms are Medication Reconciliation Form, Thank You Letter, Antibiotic Education, Prescription Opioid Use. Follow up: Private Physician; When: 2 - 3 days; Reason: Recheck today's complaints, Continuance of care, Re-evaluation by your physician. Follow up: Michel Gee; When: 2 - 3 days; Reason: Recheck today's complaints, Continuance of care, Re-evaluation by your physician. Problem is new. Symptoms have improved. harlan
--- NOTE | 2020-05-01 05:36 | ER ---
Nurse's Notes [facility] Name: Luis Forman Age: 34 yrs Sex: Male : 1985 Arrival Date: 05/01/2020 Time: 00:44 Bed 3 Private MD: Diagnosis: Urinary tract infection, site not specified;Abdominal tenderness;Cystitis, unspecified;Cystitis, unspecified with hematuria Presentation: 05/01 00:46 Chief complaint: Patient states: Returning flank pain and nausea seen here last night sg and discharged to home to follow up, reports symptoms returning at this time. 00:46 Acuity: FLORINDA 3 sg 01:45 Coronavirus screen: At this time, the client does not indicate any symptoms associated ea with coronavirus-19. Ebola Screen: No symptoms or risks identified at this time. Initial Sepsis Screen: Does the patient meet any 2 criteria? No. Patient's initial sepsis screen is negative. Does the patient have a suspected source of infection? No. Patient's initial sepsis screen is negative. Risk Assessment: Do you want to hurt yourself or someone else? Patient reports no desire to harm self or others. Onset of symptoms was May 01, 2020. 01:45 Method Of Arrival: Ambulatory ea Historical: - Allergies: 00:46 Morphine; sg - PMHx: 00:46 Crohn's; Kidney stones; sg - PSHx: 00:46 Cholecystectomy; sg - Immunization history:: Adult Immunizations unknown. - Family history:: not pertinent. - Social history:: Smoking status: unknown. Screenin:45 Abuse screen: Denies threats or abuse. Nutritional screening: No deficits noted. ea Tuberculosis screening: No symptoms or risk factors identified. Fall Risk None identified. Assessment: 02:24 General: Appears uncomfortable, Behavior is appropriate for age. Pain: Complains of ea pain in left mid back and left low back. Neuro: Level of Consciousness is awake, alert, obeys commands, Oriented to person, place, time. Respiratory: Airway is patent Respiratory effort is even, unlabored, Respiratory pattern is regular, symmetrical. Derm: Skin is pink, warm \T\ dry. 03:50 Reassessment: Patient and/or family updated on plan of care and expected duration. Pain ea level reassessed. Patient is alert, oriented x 3, equal unlabored respirations, skin warm/dry/pink. Pt going to CT. 05:50 Reassessment: request something for pain, Dr. Camejo notified, received VO to repeat em 1 mg Dilaudid IVP x 1. 06:13 Reassessment: Patient and/or family updated on plan of care and expected duration. Pain ea level reassessed. Patient is alert, oriented x 3, equal unlabored respirations, skin warm/dry/pink. Discharge instructions given to patient verbalized the understanding of instruction. Pt left ED ambulatory tolerating well. Vital Signs: 00:46 BP 162 / 100; Pulse 88; Resp 18; Pulse Ox 100% on R/A; sg 02:54 BP 152 / 105; Pulse 76; Resp 18; Pulse Ox 99% on R/A; ea 05:50 BP 148 / 98; Pulse 72; Resp 16; Pulse Ox 99% on R/A; Pain 9/10; em ED Course: 00:44 Patient arrived in ED. am4 00:47 Triage completed. sg 00:47 Arm band placed on. sg 01:30 Minor Camejo MD is Attending Physician. harlan 01:45 Ursula Boucher, ARNOL is Primary Nurse. ea 01:46 Patient has correct armband on for positive identification. Bed in low position. Call ea light in reach. Side rails up X 1. Pulse ox on. NIBP on. 02:05 Inserted saline lock: 22 gauge in right upper arm, using aseptic technique. ,using ea aseptic technique. per Pete RN Blood collected. 04:39 CT Abd/Pelvis - IV Contrast Only In Process Unspecified. EDMS 05:34 Michel Gee MD is Referral Physician. harlan 05:48 Urine collected: clean catch specimen, clear. em 06:05 No provider procedures requiring assistance completed. IV discontinued, intact, em bleeding controlled, No redness/swelling at site. Pressure dressing applied. Administered Medications: 02:22 Drug: Zofran (Ondansetron) 4 mg Route: IVP; Site: right upper arm; ea 02:23 Follow up: Response: No adverse reaction ea 02:22 Drug: TORadol 30 mg Route: IVP; Site: right upper arm; ea 02:53 Follow up: Response: No adverse reaction ea 02:23 Drug: NS 0.9% 1000 ml Route: IV; Rate: 1 bolus; Site: right upper arm; ea 02:23 Drug: fentaNYL (PF) 50 mcg Route: IVP; Site: right upper arm; ea 02:53 Follow up: Response: No adverse reaction ea 02:51 Drug: Dilaudid 1 mg Route: IVP; Site: right upper arm; ea 03:30 Follow up: Response: No adverse reaction ea 04:02 Drug: Dilaudid 1 mg Route: IVP; Site: right upper arm; ea 05:00 Follow up: Response: No adverse reaction ea 05:00 Follow up: Response: No adverse reaction ea 04:03 Drug: NS 0.9% 1000 ml Route: IV; Rate: 1 bolus; Site: right upper arm; ea 06:06 Follow up: IV Status: Completed infusion; IV Intake: 1000ml em 04:18 Drug: SOLU-Medrol 125 mg Route: IVP; Site: right upper arm; ea 06:08 Follow up: Response: No adverse reaction em 04:19 Drug: Benadryl 50 mg Route: IVP; Site: right upper arm; ea 05:00 Follow up: Response: No adverse reaction ea 04:19 Drug: Pepcid 40 mg Route: IVP; Site: right upper arm; ea 06:09 Follow up: Response: No adverse reaction em 05:52 Drug: Rocephin - (cefTRIAXone) 1 grams Route: IVPB; Infused Over: 30 mins; Site: right em upper arm; 06:08 Follow up: Response: No adverse reaction; IV Status: Completed infusion; IV Intake: 10mlem 05:58 Drug: Dilaudid 1 mg Route: IVP; Site: right upper arm; em 06:08 Follow up: Response: Medication administered at discharge. em Intake: 06:06 IV: 1000ml; Total: 1000ml. em 06:08 IV: 10ml; Total: 1010ml. em Outcome: 05:35 Discharge ordered by . harlan 06:05 Discharged to home ambulatory, with family. em 06:05 Condition: stable 06:05 Discharge instructions given to patient, Instructed on discharge instructions, follow up and referral plans. medication usage, Demonstrated understanding of instructions, follow-up care, medications, Prescriptions given X 4. 06:12 Patient left the ED. em Signatures: Dispatcher [employer] EDChaitanya Osborne RN RN sg Anderson, Corey, MD MD cha Munoz, Edgar, RN RN Ursula Salazar, RN RN Zenobia Salter Quinn
[2020-05-01] MEDS ORDERED: CEFTRIAXONE/SWI 1gm 1 GM/10 ML SYR ONE (06:09)
[2020-05-01 06:18] VITALS: O2SAT 99
[2020-05-01 06:19] VITALS: BP 148/98
[2020-05-01 08:23] LABS: Urine Blood 3+ (NEG); Urine Glucose NEGATIVE (NEG); Urine Protein NEGATIVE (NEG); Urine Specific Gravity <1.005 (1.005-1.030)
--- NOTE | 2020-05-01 11:13 | RAD REPORT ---
EXAM DESCRIPTION: CT - Abdomen Pelvis W Contrast - 05/01/2020 6:58 am CLINICAL HISTORY: ABD PAIN COMPARISON: 04/30/2020 TECHNIQUE: CT of the abdomen and pelvis performed following IV administration of iodinated contras t. This exam was performed according to our departmental dose-optimization program, which includes au tomated exposure control, adjustment of the mA and/or kV according to patient size and/or use of iter ative reconstruction technique. FINDINGS: Lung Bases: The visualized lung bases are clear. Bones: No destructive bone lesions identified. Abdomen: Liver: The liver has normal size and density. No intrahepatic biliary dilatation. Gallbladder: Prior cholecystectomy. Spleen, Pancreas, and Adrenal Glands: The spleen, pancreas, and adrenal glands are unremarkable. Kidneys: No hydronephrosis or obstructing calculus. Vasculature: The aorta and IVC have normal caliber and position. The portal vein is patent. The pro ximal visceral and renal arteries are patent. Stomach: The stomach and duodenum have normal course. Other: No free intraperitoneal air. No free fluid or lymphadenopathy. Pelvis: Bladder: Mild wall thickening of the urinary bladder. Bowel: No dilated loops of large or small bowel. Moderate amount of stool. Appendix: Prior appendectomy. Pelvis: Scattered phleboliths in the pelvis. Prostate is not enlarged. IMPRESSION: 1. Mild wall thickening of the urinary bladder. This could be seen with cystitis. 2. No obstructing ureteral calculus or hydronephrosis. Electronically signed by: Zafar Cheng 05/01/2020 5:00 AM CDT Due to temporary technical issues with the PACS/Fluency reporting system, reports are being signed by the in house radiologists without review as a courtesy to insure prompt reporting. The interpreting radiologist is fully responsible for the content of the report.
== END 2020-05-01 06:12 | disposition home or self-care (01) ==
LOC: ER 00:41
DX: N30.91 Cystitis, unspecified with hematuria (principal); K50.90 Crohn's disease, unspecified, without complications; Z87.442 Personal history of urinary calculi
CPT/HCPCS: 36415; 74177; 80048; 80076; 81003; 83690; 85025; 96361; 96365; 96375; 99284; J0696; J1170; J1200; J2405; J2930; J3010; J7030; Q9967